=== PATIENT | female | born 1995 | race Caucasian/White ===

== ENCOUNTER 2021-02-14 06:16 | Inpatient (IN) | payer MEDICAID ==
[~2021-02-14] VITALS: Ht 162.6 cm; Wt 81.8 kg
[~2021-02-14 06:16] MED LIST: DOCU-131 PO; FERR1TAB10 PO; IBUP-1222 PO; OXYC1TAB14 PO; PREN1TAB52 PO
[2021-02-14] MEDS ORDERED: LACTATED RINGERS 1,000 ML IVBOLUS ONE (10:00)
[2021-02-14] MEDS ORDERED: SODIUM CITRATE/CITRIC ACID 30 ML UDC PO ONE (10:00)
[2021-02-14] MEDS ORDERED: METOCLOPRAMIDE 5 MG/ML, 2ML IV ONE (10:00)
[2021-02-14] MEDS ORDERED: LACTATED RINGERS 1,000 ML IV SCH (10:00)
[2021-02-14] MEDS ORDERED: SODIUM CITRATE/CITRIC ACID 15 ML UDC ONE (10:08)
[2021-02-14] MEDS ORDERED: METOCLOPRAMIDE 5 MG/ML, 2ML ONE (10:08)
[2021-02-14] MEDS ORDERED: OXYTOCIN 30U/ 0.9% NaCL 500ML 500 ML ONE (10:08)
[2021-02-14] MEDS ORDERED: NEWBORN KIT ONE (10:08)
[2021-02-14 10:29] LABS: BASOPHILS % (AUTO) 0 % (0-1); EOSINOPHILS % (AUTO) 1 % (1-7); LYMPHOCYTES % (AUTO) 16 % (22-44); MEAN CORPUSCULAR HEMOGLOBIN 26.5 pg (27.0-34.8); MEAN CORPUSCULAR HGB CONC 33.4 g/dL (32.4-35.8); MEAN PLATELET VOLUME 8.6 fL (7.4-10.4); MONOCYTES % (AUTO) 8 % (2-9); NEUTROPHILS % (AUTO) 75 % (42-75); PLATELET COUNT 197 x10^3/uL (130-400); RED BLOOD COUNT 4.29 x10^6/uL (3.82-5.3); RED CELL DISTRIBUTION WIDTH 13.2 % (9.6-15.2)
[2021-02-14 10:35] LABS: MD NO
[2021-02-14] MEDS ORDERED: OXYTOCIN 10 UNITS/ML, 1ML ONE (11:55)
[2021-02-14] MEDS ORDERED: HYDROmorphone 2 MG/ML, 1ML ONE (11:55)
[2021-02-14] MEDS ORDERED: ONDANSETRON 2MG/ML, 2ML ONE (11:55)
[2021-02-14] MEDS ORDERED: CEFAZOLIN 1,000 MG ONE (11:55)
[2021-02-14] MEDS ORDERED: FENTANYL PF 100 MCG/2ML ONE (11:55)
[2021-02-14] MEDS ORDERED: KETOROLAC 30 MG/1 ML ONE (11:56)
[2021-02-14] MEDS ORDERED: EPHEDRINE 50 MG/ML, 1ML ONE (12:31)
[2021-02-14] MEDS: LACTATED RINGERS 1,000 ML IV SCH ×4 (13:30→23:30)
[2021-02-14] MEDS ORDERED: CALCIUM CARBONATE 500 MG TAB.CHEW PO PRN (13:30)
[2021-02-14] MEDS ORDERED: MISOPROSTOL 200 MCG TABLET PR PRN (13:30)
[2021-02-14] MEDS ORDERED: ACETAMINOPHEN 325 MG TABLET PO SCH (13:30)
[2021-02-14] MEDS ORDERED: morphine SULFATE 10 MG/ML, 1ML IM PRN (13:30)
[2021-02-14] MEDS ORDERED: BISACODYL 10 MG SUPP PR PRN (13:30)
[2021-02-14] MEDS ORDERED: ONDANSETRON 2MG/ML, 2ML IV PRN (13:30)
[2021-02-14] MEDS ORDERED: MORPHINE SULFATE 4 MG/ML, 1ML IVPush PRN (13:30)
[2021-02-14] MEDS ORDERED: OXYcodone IR 5MG TABLET PO PRN (13:30)
[2021-02-14] MEDS ORDERED: SIMETHICONE 80 MG CHEW TAB PO PRN (13:30)
[2021-02-14] MEDS: OXYTOCIN 30U/ 0.9% NaCL 500ML 500 ML IV SCH ×2 (14:08→23:30)
[2021-02-14] MEDS ORDERED: ACETAMINOPHEN 500 MG TABLET ONE (14:59)
[2021-02-14 15:30] VITALS: BP 111/73
[2021-02-14] MEDS: OXYcodone IR 5MG TABLET PO PRN ×2 (16:28→20:37)
[2021-02-14] MEDS: KETOROLAC 30 MG/1 ML IV SCH (18:44)
[2021-02-14 19:30] VITALS: BP 103/68
[2021-02-14 20:11] LABS: BASOPHILS % (AUTO) 0 % (0-1); EOSINOPHILS % (AUTO) 1 % (1-7); LYMPHOCYTES % (AUTO) 15 % (22-44); MEAN CORPUSCULAR HEMOGLOBIN 26.1 pg (27.0-34.8); MEAN CORPUSCULAR HGB CONC 32.9 g/dL (32.4-35.8); MEAN PLATELET VOLUME 8.7 fL (7.4-10.4); MONOCYTES % (AUTO) 6 % (2-9); NEUTROPHILS % (AUTO) 78 % (42-75); PLATELET COUNT 166 x10^3/uL (130-400); RED CELL DISTRIBUTION WIDTH 13.3 % (9.6-15.2)
[2021-02-14 20:13] LABS: MD NO
[2021-02-14] MEDS: DOCUSATE 100 MG CAPSULE PO PRN (20:37)
[2021-02-14] MEDS: ACETAMINOPHEN 500 MG TABLET PO SCH (21:05)
[2021-02-15 00:30] VITALS: BP 94/56
[2021-02-15] MEDS ORDERED: OXYcodone 5 MG/5 ML ORAL.SOL UDC ONE (00:37)
[2021-02-15] MEDS: KETOROLAC 30 MG/1 ML IV SCH ×3 (00:40→12:38)
[2021-02-15] MEDS: ACETAMINOPHEN 500 MG TABLET PO SCH ×4 (02:58→21:17)
[2021-02-15 04:00] VITALS: BP 94/59
[2021-02-15] MEDS: OXYcodone IR 5MG TABLET PO PRN ×5 (04:36→21:17)
[2021-02-15] MEDS: LACTATED RINGERS 1,000 ML IV SCH (05:30)
[2021-02-15 08:05] VITALS: BP 101/66
[2021-02-15] MEDS: PRENATAL VIT/IRON/FA 1 EACH TABLET PO SCH (09:00)
[2021-02-15] MEDS: DOCUSATE 100 MG CAPSULE PO PRN ×2 (09:06→21:17)
[2021-02-15] MEDS ORDERED: KETOROLAC 30 MG/1 ML ONE (12:36)
[2021-02-15 13:00] VITALS: BP 113/75
[2021-02-15] MEDS: IBUPROFEN 600 MG TABLET PO PRN (18:44)
[2021-02-15 19:30] VITALS: BP 107/70
[2021-02-16] MEDS: IBUPROFEN 600 MG TABLET PO PRN ×2 (00:41→06:51)
[2021-02-16] MEDS: ACETAMINOPHEN 500 MG TABLET PO SCH ×2 (03:11→08:57)
[2021-02-16] MEDS: OXYcodone IR 5MG TABLET PO PRN ×2 (06:51→11:43)
[2021-02-16] MEDS ORDERED: IBUP-1222 PO (07:13)
[2021-02-16] MEDS ORDERED: OXYC5CAP2 PO (07:13)
[2021-02-16 08:02] VITALS: BP 105/66
[2021-02-16] MEDS: DOCUSATE 100 MG CAPSULE PO PRN (08:57)
[2021-02-16] MEDS: PRENATAL VIT/IRON/FA 1 EACH TABLET PO SCH (08:57)
== END 2021-02-16 12:05 | disposition home or self-care (01) | DRG 788 ==
LOC: LDIP 09:49 → 2NW 14:37
PROVIDERS: ADMIT Obstetrics & Gynecology; ATTEND Obstetrics & Gynecology
PROC: 10D00Z1 Extraction of Products of Conception, Low, Open Approach (ICD-10-PCS; principal; 2021-02-14)
DX: O34.211 Maternal care for low transverse scar from previous cesarean delivery (principal); Z37.0 Single live birth; Z3A.39 39 weeks gestation of pregnancy; Z87.891 Personal history of nicotine dependence; F32.9 Major depressive disorder, single episode, unspecified; O99.344 Other mental disorders complicating childbirth
CPT/HCPCS: 36415; 85025; 86592; 86850; 86900; 87806; G0378; J0690; J1170; J1885; J2405; J3010; G0475; J2590; J2765; J7120